=== PATIENT | female | born 1980 | race American Indian/Alaskan Native ===

== ENCOUNTER 2017-05-06 08:34 | Day surgery (SDC) | payer MEDICARE ==
--- NOTE | 2017-04-27 15:15 | Operative Report ---
Operative Report Operative Report: Procedure: 1. Right internal jugular tunneled dialysis catheter placement 2. Ultrasound guided puncture of the right internal jugular vein. Date: 03/20/2017 Physician: Mckayla Nunez MD Indication: 36 year old female with end stage renal disease, in need of dialysis. Technique: The patient was placed in the supine position and prepped and draped in the usual sterile fashion. A timeout was performed. Local anesthetic was administered. Under direct ultrasound guidance, the right internal jugular vein was accessed with a 21-gauge needle. This was exchanged over a manual wire for a 4 [place] exchanged dilator. Via the exchanged dilator, and 035 wire was advanced into the IVC. Attention was then turned to the right chest wall. An appropriate catheter exit site was chosen, and local anesthetic was again administered. A skin laura was made, and the catheter was tunneled under the skin from the exit site to the venotomy. After serial tissue dilation, the dialysis catheter was advanced through a peel- away sheath, until the tip was in the right atrium. Vacuum aspiration and flushing was performed. Each lumen was instilled with heparin. The catheter was secured to the skin with 2-0 Ethilon suture. The venotomy site was closed with Dermabond. Sterile dressings were placed, and the patient was transported from the procedure area in stable condition. Findings: 1. Ultrasound demonstrates a patent and compressible right internal jugular vein. 2. There is successful placement of a glide path 23 cm tunneled dialysis catheter via the right internal jugular vein. 3. Each lumen flushes and aspirates briskly. 4. Positioning of the catheter tip within the right atrium is confirmed by fluoroscopy. The catheter is ready for use.
[~2017-05-06 08:34] MED LIST: ANCEF/STERILE WATER 2 GM/20 ML 2 GM/20 ML SYRINGE IV NR; NACL 0.9% 1000 ML 1,000 ML IV SCH
[2017-05-06] MEDS ORDERED: NACL BACTERIOSTATIC INFILTRATI ONE ×2 (09:38→10:23)
[2017-05-06] MEDS ORDERED: XYLOCAINE MPF 2% ONE (09:48)
[2017-05-06] MEDS ORDERED: SUBLIMAZE ONE (09:48)
[2017-05-06] MEDS ORDERED: DIPRIVAN 10 MG/ML IV ONE ×2 (09:49→14:05)
--- NOTE | 2017-05-06 10:12 | Anesthesia Consultation ---
Anesthesia Consult and Med Hx Date of service: 05/06/17 - Airway Anesthetic Teeth Evaluation: Poor (poor dental hygiene, teeth intact ) ROM Head & Neck: Adequate Mental/Hyoid Distance: Adequate Mallampati Class: Class II Intubation Access Assessment: Possibly Difficult - Pulmonary Exam CTA: Yes - Cardiac Exam Cardiac Exam: RRR - Pre-Operative Health Status ASA Pre-Surgery Classification: ASA3 Proposed Anesthetic Plan: General - Pre-Anesthesia Comment Pre-Anesthesia Comments: last dialysis txt Thursday. sore throat for a week with last anesthetic - Cardiovascular System Hx Hypertension: Yes (FOR 4 YRS) - Central Nervous System Hx Psychiatric Problems: Yes (anxiety ) - Endocrine Hx End Stage Renal Disease: Yes - Hematic Hx Anemia: Yes
--- NOTE | 2017-05-06 10:13 | Anesthesia Day of Surgery ---
Anesthesia Day of Surgery - Day of Surgery Patient Examined: Yes Patient H&P Reviewed: Yes Patient is NPO: Yes
[2017-05-06] MEDS ORDERED: NEO SYNEPHRINE/NS Syringe(OR USE) IV ONE (10:30)
[2017-05-06] MEDS ORDERED: HEPARIN 10,000 UNITS/10 ML ONE ×2 (10:43→12:32)
[2017-05-06] MEDS ORDERED: PAPAVERINE ONE (10:43)
[2017-05-06] MEDS ORDERED: NACL 0.9% 500 ML 500 ML ONE (10:43)
[2017-05-06] MEDS ORDERED: PROTAMINE SULFATE ONE (10:43)
[2017-05-06] MEDS ORDERED: VERSED IV NR (10:43)
[2017-05-06] MEDS ORDERED: MARCAINE 0.5% 30 ML INFILTRATI ONE (10:43)
[2017-05-06] MEDS ORDERED: PEPCID IV NR (10:44)
[2017-05-06] MEDS ORDERED: QUELICIN ONE (11:44)
[2017-05-06] MEDS ORDERED: ZEMURON IV ONE (11:44)
[2017-05-06] MEDS ORDERED: ePHEDrine SULFATE ONE (11:48)
[2017-05-06] MEDS ORDERED: ROBINUL ONE (12:13)
[2017-05-06] MEDS ORDERED: ZOFRAN ONE ×2 (12:14→14:15)
[2017-05-06] MEDS ORDERED: NEOSTIGMINE ONE (12:14)
[2017-05-06] MEDS ORDERED: HEPARIN 10,000 UNITS/10 ML IV ONE (12:38)
[2017-05-06] MEDS ORDERED: MARCAINE 0.5% INFILTRATI ONE (12:39)
[2017-05-06] MEDS ORDERED: NACL 0.9% 500 ML IV ONE (12:39)
[2017-05-06] MEDS ORDERED: NACL 0.9% IR ONE (12:39)
[2017-05-06] MEDS ORDERED: DILAUDID ONE ×3 (13:37→14:30)
--- NOTE | 2017-05-06 13:37 | Operative Report ---
Operative Report Operative Report: Preoperative diagnoses end-stage renal disease. Postoperative diagnosis: The same Procedure: Left upper extremity brachial/axillary AV graft placement with bovine arterial graft. Surgeon: Frandy Salazar M.D. Asst.: Vangie Severino DO Asst.: None EBL 50. IV fluids 450. Findings: [Adequate size brachial artery. Adequate size axillary vein. Excellent thrill in the graft. Excellent hemostasis.] Disposition to recovery room Indication: patient with end-stage renal disease on dialysis we needs a permanent access. Procedure in detail: Patient was brought to the operating room laid on the table in supine position. After general endotracheal anesthesia was achieved patient was prepped and draped in usual sterile fashion. The incision was made longitudinally in the left arm above the elbow using #15 blade. Subcutaneous tissue was divided with Bovie electrocautery. The brachial artery was dissected and encircled was Vesseloops proximally and distally. Then attention was turned to the axilla. It was infiltrated with Marcaine. Incision was made using #15 blade. The subcutaneous tissue was divided by electrocautery. The axillary vein was dissected free. It vein was incircled with small vessel loops proximally and distally. Once the vein was ready the tunnel was created using the curved type inspector and the bovine arterial graft was tunneled underneath the skin. Patient received 4000 units of intravenous heparin. After 3 minutes the artery was clamped with vascular clamps proximally and distally. Arteriotomy was made using #11 blade and Zayas scissors. The proximal anastomosis was created using 6-0 Prolene running suture. Prior to completion of the anastomosis back bleeding maneuvers were performed and were adequate. Then anastomosis was completed. Clamps were released. There was good flow into the graft. An excellent hemostasis was achieved. The wound was packed with wet sponge. The axillary vein then was occluded using vascular clamps. The distal end of the bovine graft was spatulated. The distal anastomosis was created using 7-0 Prolene running suture. Once the clamps were released backbleeding was observed in the was good. The anastomosis was completed. The graft had an excellent thrill. Hemostasis was ascertained in both wounds. The wounds were closed in layers using 3-0 Vicryl and 4 Monocryl subcuticular closure. Patient tolerated procedure well. At the end of the case all attachment sponge and needle counts were correct.
--- NOTE | 2017-05-06 13:44 | Short Stay Summary ---
Short Stay Documentation - Allergies and Medications Current Medications: Allergies No Known Allergies Allergy (Unverified 03/19/17 13:00) Home Medications Medication Instructions Recorded Confirmed Last Taken Type ALPRAZolam [Xanax TAB] 0.25 mg PO BID PRN 04/30/17 05/06/17 05/02/17 History Cinacalcet [Sensipar] 30 mg PO QDAY 04/30/17 05/06/17 05/05/17 History Sertraline [Zoloft] 25 mg PO QDAY PRN 04/30/17 05/06/17 05/03/17 History cloNIDine [Catapres] 0.2 mg PO QDAY 04/30/17 05/06/17 05/05/17 History Active Medications Famotidine (Pepcid) 20 mg IV PREOP NR Stop: 05/06/17 23:59 Last Admin: 05/06/17 11:02 Dose: 20 mg Cefazolin Sodium (Ancef/Sterile Water 2 Gm/20 Ml) 2 gm in 20 mls @ 80 mls/hr IV PREOP NR PRN Reason: Protocol Stop: 05/06/17 23:59 Sodium Chloride (Nacl 0.9% 1000 Ml) 1,000 mls @ 42 mls/hr IV DIRECT [facility] Midazolam HCl (Versed) 2 mg IV PREOP NR Stop: 05/06/17 23:59 Last Admin: 05/06/17 11:05 Dose: 2 mg - Brief post op/procedure progress note Procedure: Preoperative diagnoses end-stage renal disease. Postoperative diagnosis: The same Procedure: Left upper extremity brachial/axillary AV graft placement with bovine arterial graft. Surgeon: Frandy Salazar M.D. Asst.: Vangie Severino DO Asst.: None EBL 50. IV fluids 450. Findings: [Adequate size brachial artery. Adequate size axillary vein. Excellent thrill in the graft. Excellent hemostasis.] Disposition to recovery room - Disposition Condition at discharge: Good Disposition: DC-01 TO HOME OR SELFCARE Short Stay Discharge Plan Activity: advance as tolerated (no heavy lifting was left arm for 6 weeks) Weight Bearing Status: Full Weight Bearing Diet: renal Wound: open to air Follow up with: PRIMARY MD EUGENIO [Primary Care Provider] - 7 Days FRANDY SALAZAR MD [Staff Physician] - 14 Days
[2017-05-06] MEDS ORDERED: ZOFRAN IV PRN (14:10)
[2017-05-06] MEDS ORDERED: DILAUDID IV PRN (14:10)
--- NOTE | 2017-05-06 15:43 | Post Anesthesia Evaluation ---
- Post Anesthesia Evaluation Patient Participated: Yes Airway Patent: Yes Stable Respiratory Function: Yes Nausea/Vomiting: No Temp > 96.8F: Yes Pain Manageable: Yes Adequeate Hydration: Yes Anesthesia Complications: No
[2017-05-06] MEDS ORDERED: HEPARIN IV SCH (16:45)
[2017-05-06] MEDS ORDERED: ZOFRAN IV SCH (17:30)
[2017-05-06] MEDS ORDERED: TORADOL IV SCH (19:00)
[2017-05-06 19:13] VITALS: BP 120/77
== END 2017-05-06 18:58 | disposition home or self-care (01) ==
LOC: OR 08:34
PROVIDERS: ATTEND Surgery Vascular Surgery
DX: I12.0 Hypertensive chronic kidney disease with stage 5 chronic kidney disease or end stage renal disease (principal); N18.6 End stage renal disease; F41.9 Anxiety disorder, unspecified; D64.9 Anemia, unspecified; Z99.2 Dependence on renal dialysis; Z79.899 Other long term (current) drug therapy; Z98.890 Other specified postprocedural states
CPT/HCPCS: 36415; 36830; 84132; 84703; C1768; J0330; J0690; J1170; J1644; J1885; J2250; J2370; J2405; J2704; J2710; J3010; J7030; J7040; J2440; J2720

== ENCOUNTER 2018-04-22 07:20 | Day surgery (SDC) | payer MEDICARE ==
[~2018-04-22 07:20] MED LIST changes: +NACL BACTERIOSTATIC INFILTRATI ONE
[2018-04-22] MEDS ORDERED: HEPARIN 10,000 UNITS/10 ML ONE (07:36)
[2018-04-22] MEDS ORDERED: SODIUM BICARBONATE ONE (07:39)
[2018-04-22] MEDS ORDERED: MARCAINE 0.5% 30 ML INFILTRATI ONE (07:39)
[2018-04-22] MEDS ORDERED: NACL 0.9% 500 ML 500 ML ONE (07:39)
[2018-04-22] MEDS ORDERED: VALIUM ONE (08:01)
[2018-04-22] MEDS ORDERED: VERSED ONE ×2 (08:05→08:30)
[2018-04-22] MEDS ORDERED: ZOFRAN ONE ×3 (08:06→16:39)
[2018-04-22] MEDS ORDERED: PEPCID IV ONE (08:06)
[2018-04-22 08:19] LABS: Basophils # (Auto) 0.1 K/mm3 (0.0-0.1); Basophils % (Auto) 0.9 % (0.0-1.8); Eosinophils # (Auto) 0.2 K/mm3 (0.0-0.4); Eosinophils % (Auto) 3.1 % (0.0-4.3); Hematocrit 31.2 % (30.3-42.9); Hemoglobin 10.1 gm/dl (10.1-14.3); Lymphocytes # (Auto) 1.6 K/mm3 (1.2-5.4); Lymphocytes % (Auto) 26.6 % (13.4-35.0); Mean Corpuscular HGB Conc 33 % (30-34); Mean Corpuscular Hemoglobin 32 pg (28-32); Mean Corpuscular Volume 98 fl (79-97); Monocytes # (Auto) 0.4 K/mm3 (0.0-0.8); Monocytes % (Auto) 6.7 % (0.0-7.3); Platelet Count 210 K/mm3 (140-440); Red Blood Count 3.19 M/mm3 (3.65-5.03); Red Cell Distribution Width 16.6 % (13.2-15.2)
[2018-04-22] MEDS ORDERED: REGLAN ONE (08:30)
[2018-04-22] MEDS ORDERED: DIPRIVAN 10 MG/ML IV ONE (08:30)
[2018-04-22] MEDS ORDERED: SUBLIMAZE ONE ×3 (08:30→10:19)
[2018-04-22] MEDS ORDERED: XYLOCAINE MPF 2% ONE (08:30)
[2018-04-22 08:31] LABS: Calcium 7.8 mg/dL (8.4-10.2)
[2018-04-22] MEDS ORDERED: ZEMURON IV ONE (08:34)
[2018-04-22] MEDS ORDERED: NEO SYNEPHRINE/NS Syringe(OR USE) IV ONE (08:52)
[2018-04-22] MEDS ORDERED: ePHEDrine 50 MG/5 ML-0.9% NACL IV ONE (08:56)
[2018-04-22] MEDS ORDERED: ZOFRAN IV PRN (09:03)
[2018-04-22] MEDS ORDERED: DILAUDID IV PRN (09:03)
--- NOTE | 2018-04-22 09:07 | Anesthesia Day of Surgery ---
Anesthesia Day of Surgery - Day of Surgery Patient Examined: Yes Patient H&P Reviewed: Yes Patient is NPO: Yes
--- NOTE | 2018-04-22 09:09 | Anesthesia Consultation ---
Anesthesia Consult and Med Hx Date of service: 04/22/18 - Airway Anesthetic Teeth Evaluation: Poor, Chipped ROM Head & Neck: Adequate Mental/Hyoid Distance: Adequate Mallampati Class: Class III Intubation Access Assessment: Possibly Difficult - Pulmonary Exam CTA: Yes - Cardiac Exam Cardiac Exam: RRR - Pre-Operative Health Status ASA Pre-Surgery Classification: ASA4 Proposed Anesthetic Plan: General (extreme anxiety given valium 5mg po and versed 2mg iv in preop, another versed 2mg iv in OR. Plan to intubate ) - Pulmonary Hx Smoking: No Hx Asthma: No COPD: No Hx Pneumonia: No Hx Sleep Apnea: No (LENNY PRE SCREEN HIGH RISK.) - Cardiovascular System Hx Hypertension: Yes (X 5 YRS- ONLY TAKES MEDS PRN) Hx Heart Attack/AMI: No - Central Nervous System Hx Psychiatric Problems: Yes (anxiety ) - Endocrine Hx End Stage Renal Disease: Yes - Hematic Hx Anemia: Yes - Other Systems Hx Cancer: No
[2018-04-22] MEDS ORDERED: HEPARIN 10,000 UNITS/10 ML 2,000 UNIT in NACL 0.9% 500 ML 500 ML IR ONE (09:24)
[2018-04-22] MEDS ORDERED: NACL 0.9% IR ONE (09:25)
[2018-04-22] MEDS ORDERED: MARCAINE 0.5% INFILTRATI ONE (09:26)
[2018-04-22] MEDS ORDERED: NACL 0.9% 1000 ML 1,000 ML IV SCH (10:00)
[2018-04-22] MEDS ORDERED: PAPAVERINE ONE (10:41)
[2018-04-22] MEDS ORDERED: PAPAVERINE IV ONE (10:46)
[2018-04-22] MEDS ORDERED: BLOXIVERZ ONE (11:50)
[2018-04-22] MEDS ORDERED: ROBINUL ONE (11:50)
--- NOTE | 2018-04-22 12:29 | Operative Report ---
Operative Report Operative Report: Date of procedure: 04/22/2018 Pre-operative diagnosis: End-stage renal disease, mechanical complication of AV access, and obesity Post-operative diagnosis: Same Procedure name(s): Creation of right forearm transposed basilic vein to proximal radial artery AV fistula Surgeon: Janes Presley MD Capacity Planning Engineer: None Anesthesia: Gen. endotracheal EBL: Minimal Specimen(s): None Complications: None Findings: Forearm basilic vein considered adequate for AV fistula creation. Good flow in the radial artery although slightly small considered adequate for fistula creation. Excellent thrill and bruit in the fistula postanastomosis. Palpable radial pulse. Procedure: Patient in the supine position after adequate levels of IV sedation was obtained and general endotracheal anesthesia the right arm was extended and the entire extremity was then prepped and draped using standard sterile technique. The previously marked the course of the basilic vein using the ultrasound and then I made a longitudinal incision through anesthetized skin just below the antecubital fossa and carried down through the subcutaneous tissue. The fascia was divided and the radial artery, ulnar artery, and brachial artery were immediately identified and mobilized and encircled using vessel loops. I felt that the radial artery was of adequate size and the mobilized several centimeters with the intention of using the proximal radial artery as our donor arterial anastomosis. Attention was then turned over the medial aspect of the distal upper arm where the basilic vein was located. The skin overlying the area and below the elbow was then anesthetized and a longitudinal incision was then made and carried down to subcutaneous tissue. The basilic vein was identified along with the civil technician median cutaneous nerve. The nerve was preserved and swept medially. The vein was then mobilized distally into the upper forearm. Appropriate length was mobilized such that it would swing over to the brachial artery. I then divided the vein distally and hydrodilated the remaining vein. It proved to be quite adequate in size once this maneuver was completed. I then created a subcutaneous tunnel and marked the vein for rotation. It was then brought into the antecubital incision in a nonrotational fashion through the tunnel. The proximal radial artery was then occluded and a generous longitudinal arteriotomy was then made. The vein was then trimmed to an appropriate length and configuration and an end to side anastomosis was then created using 6-0 Prolene suture and running technique. Prior to completion of the suture line antegrade and retrograde flushing was performed. Suture line was then completed and flow was reestablished initially retrograde into the fistula then antegrade. Ultimately flow was released to the hand. The fistula developed an excellent thrill and bruit. Hemostasis was excellent. I then blocked the incisions with Marcaine 0.5% plain and then each wound was closed using 3-0 Vicryl subcutaneous for Monocryl subcuticular. The skin was reapproximated using octylseal. Patient was then returned to the supine position. Palpable radial pulse was noted. She was then returned to the recovery room in stable condition having tolerated the procedure well. Sponge and needle counts were correct. Excellent thrill and bruit was noted in the fistula.
--- NOTE | 2018-04-22 12:36 | Short Stay Summary ---
Short Stay Documentation Date of service: 04/22/18 Narrative H&P: Patient admitted to the operative suite for elective outpatient creation of new hemodialysis access in her right arm - History H&P: obtained from office - Allergies and Medications Current Medications: Allergies No Known Allergies Allergy (Verified 04/14/18 16:43) Home Medications Medication Instructions Recorded Confirmed Last Taken Type ALPRAZolam [Xanax TAB] 0.25 mg PO BID PRN 04/30/17 04/14/18 05/02/17 History Sertraline [Zoloft] 25 mg PO QDAY PRN 04/30/17 04/14/18 05/03/17 History cloNIDine [Catapres] 0.2 mg PO PRN PRN 04/30/17 04/14/18 05/05/17 History Active Medications Hydromorphone HCl (Dilaudid) 0.5 mg IV Q10MIN PRN PRN Reason: Pain , Severe (7-10) Stop: 04/22/18 13:00 Cefazolin Sodium (Ancef/Sterile Water 2 Gm/20 Ml) 2 gm in 20 mls @ 80 mls/hr IV PREOP NR; Protocol Stop: 04/22/18 21:00 Sodium Chloride (Nacl 0.9% 1000 Ml) 1,000 mls @ 100 mls/hr IV DIRECT [facility]ST[place]NA - Brief post op/procedure progress note Date of procedure: 04/22/18 Pre-op diagnosis: stage renal disease, mechanical complication of AV access Post-op diagnosis: same Procedure: Patient in the supine position after adequate levels of IV sedation was obtained and general endotracheal anesthesia the right arm was extended and the entire extremity was then prepped and draped using standard sterile technique. The previously marked the course of the basilic vein using the ultrasound and then I made a longitudinal incision through anesthetized skin just below the antecubital fossa and carried down through the subcutaneous tissue. The fascia was divided and the radial artery, ulnar artery, and brachial artery were immediately identified and mobilized and encircled using vessel loops. I felt that the radial artery was of adequate size and the mobilized several centimeters with the intention of using the proximal radial artery as our donor arterial anastomosis. Attention was then turned over the medial aspect of the distal upper arm where the basilic vein was located. The skin overlying the area and below the elbow was then anesthetized and a longitudinal incision was then made and carried down to subcutaneous tissue. The basilic vein was identified along with the see supervisor median cutaneous nerve. The nerve was preserved and swept medially. The vein was then mobilized distally into the upper forearm. Appropriate length was mobilized such that it would swing over to the brachial artery. I then divided the vein distally and hydrodilated the remaining vein. It proved to be quite adequate in size once this maneuver was completed. I then created a subcutaneous tunnel and marked the vein for rotation. It was then brought into the antecubital incision in a nonrotational fashion through the tunnel. The proximal radial artery was then occluded and a generous longitudinal arteriotomy was then made. The vein was then trimmed to an appropriate length and configuration and an end to side anastomosis was then created using 6-0 Prolene suture and running technique. Prior to completion of the suture line antegrade and retrograde flushing was performed. Suture line was then completed and flow was reestablished initially retrograde into the fistula then antegrade. Ultimately flow was released to the hand. The fistula developed an excellent thrill and bruit. Hemostasis was excellent. I then blocked the incisions with Marcaine 0.5% plain and then each wound was closed using 3-0 Vicryl subcutaneous for Monocryl subcuticular. The skin was reapproximated using octylseal. Patient was then returned to the supine position. Palpable radial pulse was noted. She was then returned to the recovery room in stable condition having tolerated the procedure well. Sponge and needle counts were correct. Excellent thrill and bruit was noted in the fistula. Anesthesia: GETA - Disposition Condition at discharge: Stable Disposition: DC- TO HOME OR SELFCARE - Discharge Diagnoses (1) End stage renal disease on dialysis Status: Chronic (2) Malfunction of arteriovenous shunt Status: Chronic Qualifiers: Encounter type: subsequent encounter Qualified Code(s): T82.591D - Other mechanical complication of surgically created arteriovenous shunt, subsequent encounter Short Stay Discharge Plan Activity: advance as tolerated Weight Bearing Status: Full Weight Bearing Diet: renal Wound: keep clean and dry Special Instructions: no heavy lifting Follow up with: YI BECKER MD [Primary Care Provider] - 7 Days MONICO GRIFFIN MD [Staff Physician] - 7 Days HUMA WITT MD [Staff Physician] - 14 Days Prescriptions: HYDROcodone/APAP 5-325 [Stanton 5/325] 1 each PO Q4HR PRN #20 tablet PRN Reason: Pain
[2018-04-22] MEDS ORDERED: PHENERGAN PR PRN (13:33)
[2018-04-22] MEDS ORDERED: DILAUDID IM PRN (13:37)
[2018-04-22 16:19] VITALS: BP 103/68
== END 2018-04-22 17:21 | disposition home or self-care (01) ==
LOC: OR 07:20
PROVIDERS: ATTEND Surgery Vascular Surgery
DX: T82.590A Other mechanical complication of surgically created arteriovenous fistula, initial encounter (principal); E66.01 Morbid (severe) obesity due to excess calories; I12.0 Hypertensive chronic kidney disease with stage 5 chronic kidney disease or end stage renal disease; N18.6 End stage renal disease; F41.9 Anxiety disorder, unspecified; Y83.2 Surgical operation with anastomosis, bypass or graft as the cause of abnormal reaction of the patient, or of later complication, without mention of misadventure at the time of the procedure; Z98.890 Other specified postprocedural states; Z68.41 Body mass index [BMI] 40.0-44.9, adult
CPT/HCPCS: 36415; 36819; 80048; 84703; 85025; J0690; J1170; J1644; J2250; J2370; J2405; J2440; J2704; J2710; J2765; J3010; J7030; J7040

== ENCOUNTER 2018-07-01 06:40 | Day surgery (SDC) | payer MEDICARE ==
[~2018-07-01 06:40] MED LIST changes: +HEPARIN 10,000 UNITS/10 ML IV ONE; +MARCAINE 0.5% INFILTRATI ONE; +MARCAINE-EPI 0.5%-1:200,000 INFILTRATI ONE; +NACL 0.9% 500 ML IV ONE; -NACL BACTERIOSTATIC INFILTRATI ONE
[2018-07-01] MEDS ORDERED: DIPRIVAN 10 MG/ML IV ONE (06:55)
[2018-07-01] MEDS ORDERED: MARCAINE 0.5% INFILTRATI ONE (06:55)
[2018-07-01] MEDS ORDERED: DILAUDID ONE ×2 (06:55→09:30)
[2018-07-01] MEDS ORDERED: XYLOCAINE MPF 2% ONE (06:55)
[2018-07-01] MEDS ORDERED: HEPARIN 10,000 UNITS/10 ML ONE (06:56)
[2018-07-01] MEDS ORDERED: MARCAINE-EPI 0.5%-1:200,000 INFILTRATI ONE (06:56)
[2018-07-01] MEDS ORDERED: NACL 0.9% 500 ML 500 ML ONE (06:56)
[2018-07-01] MEDS ORDERED: SUBLIMAZE ONE (07:57)
--- NOTE | 2018-07-01 07:58 | Anesthesia Day of Surgery ---
Anesthesia Day of Surgery - Day of Surgery Patient Examined: Yes Patient H&P Reviewed: Yes Patient is NPO: Yes
--- NOTE | 2018-07-01 07:58 | Anesthesia Consultation ---
Anesthesia Consult and Med Hx Date of service: 07/01/18 - Airway Anesthetic Teeth Evaluation: Poor, Chipped ROM Head & Neck: Adequate Mental/Hyoid Distance: Adequate Mallampati Class: Class IV Intubation Access Assessment: Possibly Difficult (Previous easy intubation with MAC 3 per 04/2018 anesthesia record) - Pulmonary Exam CTA: Yes - Cardiac Exam Cardiac Exam: RRR - Pre-Operative Health Status ASA Pre-Surgery Classification: ASA4 Proposed Anesthetic Plan: General - Pulmonary Hx Smoking: No Hx Respiratory Symptoms: No SOB: No Home Oxygen Therapy: No - Cardiovascular System Hx Hypertension: Yes (meds prn) Hx Heart Attack/AMI: No - Central Nervous System Hx Seizures: No Hx Psychiatric Problems: Yes (anxiety/depression) - Gastrointestinal Hx Gastroesophageal Reflux Disease: No - Endocrine Hx End Stage Renal Disease: Yes (Last HD 06/30; BMP pending) Hx Liver Disease: No Hx Insulin Dependent Diabetes: No Hx Thyroid Disease: No - Hematic Hx Anemia: Yes (CBC pending) - Other Systems Hx Obesity: Yes
[2018-07-01] MEDS ORDERED: NACL 0.9% 1000 ML 1,000 ML IV SCH ×2 (08:00)
[2018-07-01] MEDS ORDERED: PEPCID IV NR (08:00)
[2018-07-01] MEDS ORDERED: VERSED IV NR (08:00)
[2018-07-01] MEDS ORDERED: DILAUDID IV PRN (08:00)
[2018-07-01] MEDS ORDERED: ZOFRAN IV PRN (08:00)
[2018-07-01 08:37] LABS: Basophils # (Auto) 0.1 K/mm3 (0.0-0.1); Basophils % (Auto) 1.3 % (0.0-1.8); Eosinophils # (Auto) 0.2 K/mm3 (0.0-0.4); Eosinophils % (Auto) 2.9 % (0.0-4.3); Hematocrit 28.1 % (30.3-42.9); Hemoglobin 9.5 gm/dl (10.1-14.3); Lymphocytes # (Auto) 1.4 K/mm3 (1.2-5.4); Mean Corpuscular HGB Conc 34 % (30-34); Mean Corpuscular Hemoglobin 32 pg (28-32); Mean Corpuscular Volume 94 fl (79-97); Monocytes # (Auto) 0.4 K/mm3 (0.0-0.8); Monocytes % (Auto) 7.1 % (0.0-7.3); Platelet Count 190 K/mm3 (140-440); Red Cell Distribution Width 17.2 % (13.2-15.2)
[2018-07-01 08:53] LABS: BUN/Creatinine Ratio TNR; Blood Urea Nitrogen TNR mg/dL (7-17); Calcium TNR mg/dL (8.4-10.2)
[2018-07-01 08:54] LABS: Hemolysis Index TNR
[2018-07-01] MEDS ORDERED: ZOFRAN ONE (08:57)
[2018-07-01] MEDS ORDERED: DECADRON ONE (08:57)
--- NOTE | 2018-07-01 12:25 | Operative Report ---
Operative Report Operative Report: Date of procedure: 07/01/2018 Pre-operative diagnosis: Function of AV fistula, right arm, end-stage renal disease on hemodialysis, morbid obesity Post-operative diagnosis: Same Procedure name(s): Revision of hemodialysis fistula right arm using elevation technique Surgeon: Janes Presley MD Electronic Calibration Technician: None Anesthesia: Gen. using LMA EBL: Minimal Specimen(s): None Complications: None Findings: Good caliber AV fistula. Good thrill and bruit and fistula palpable radial pulse at procedure completion Procedure:Patient in the supine position with the right arm extended the entire extremity is prepped and draped using sterile technique. The AV fistula was easily palpable at the antecubital fossa. I made a longitudinal incision overlying the basilic vein just above the antecubital fossa and extended sequentially to the axilla. The incision was deepened until the basilic vein was identified. Care was taken to identify and preserve the muscular cutaneous nerve throughout its entire length. Once the vein was mobilized to the level of the axilla it was encircled using vessel loops it was retracted upward and freed from its vascular base. Side branches were ligated using 3-0 silk ties. The extension was then extended along the previously mobilized portion of the vein all the way too close to the arterial venous anastomosis in order to gain extra length because of the large size of her arm. A portion of the basilic vein was mobilized in its entirety which freed up enough extra vein to make a as configuration. The vein was then divided after vascular control was obtained using the beveled technique. I then removed the upper portion of the vessel from underneath the nerves flushed and dilated it with saline. A curved Leslie-Wick tunneling device was then used to create the subdermal tunnel. Marcaine 0.5% plain was used to anesthetize the tunnel. The fistula was then attached to the tunneler and pulled back into the antecubital fossa portion of the incision in a non-rotational fashion. The vessel was then reanastomosed end to end using 6-0 Prolene suture. Prior to completion of the suture line antegrade and retrograde flushing was performed. The suture line was then completed and flow was released back to the fistula. The fistula developed an excellent thrill and bruit. Hemostasis was excellent. The incision was then blocked with Marcaine 0.5% with epinephrine. The incision was then closed using 3-0 Vicryl subcutaneous 4-0 Monocryl subcuticular. The skin was then sealed using skinafix The patient was then extubated returned to the recovery room in stable condition having tolerated the procedure well. Sponge and needle counts were correct.]
--- NOTE | 2018-07-01 12:30 | Short Stay Summary ---
Short Stay Documentation Date of service: 07/01/18 Narrative H&P: Patient admitted to the operative suite for elective outpatient revision (via elevation technique) functioning brachiobasilic fistula in her right arm - History H&P: obtained from office - Allergies and Medications Current Medications: Allergies diazepam [From Valium] Adverse Reaction (Verified 06/29/18 10:31) Diarrhea Home Medications Medication Instructions Recorded Confirmed Last Taken Type ALPRAZolam [Xanax TAB] 0.25 mg PO BID PRN 04/30/17 06/29/18 07/01/18 History Sertraline [Zoloft] 25 mg PO QDAY PRN 04/30/17 06/29/18 07/01/18 History cloNIDine [Catapres] 0.2 mg PO PRN PRN 04/30/17 06/29/18 07/01/18 History Active Medications Famotidine (Pepcid) 20 mg IV PREOP NR Stop: 07/01/18 21:00 Hydromorphone HCl (Dilaudid) 0.5 mg IV Q10MIN PRN PRN Reason: Pain , Severe (7-10) Stop: 07/01/18 15:00 Cefazolin Sodium (Ancef/Sterile Water 2 Gm/20 Ml) 2 gm in 20 mls @ 80 mls/hr IV PREOP NR; Protocol Stop: 07/01/18 23:59 Sodium Chloride (Nacl 0.9% 1000 Ml) 1,000 mls @ 42 mls/hr IV DIRECT [place] Sodium Chloride (Nacl 0.9% 1000 Ml) 1,000 mls @ 100 mls/hr IV DIRECT [place] Midazolam HCl (Versed) 2 mg IV PREOP NR Stop: 07/01/18 23:59 Ondansetron HCl (Zofran) 4 mg IV ONCE PRN PRN Reason: Nausea And Vomiting Stop: 07/01/18 17:00 - Brief post op/procedure progress note Procedure: Date of procedure: 07/01/2018 Pre-operative diagnosis: Function of AV fistula, right arm, end-stage renal disease on hemodialysis, morbid obesity Post-operative diagnosis: Same Procedure name(s): Revision of hemodialysis fistula right arm using elevation technique Surgeon: Janes Presley MD Genomics Scientist: None Anesthesia: Gen. using LMA EBL: Minimal Specimen(s): None Complications: None Findings: Good caliber AV fistula. Good thrill and bruit and fistula palpable radial pulse at procedure completion Procedure:Patient in the supine position with the right arm extended the entire extremity is prepped and draped using sterile technique. The AV fistula was easily palpable at the antecubital fossa. I made a longitudinal incision overlying the basilic vein just above the antecubital fossa and extended sequentially to the axilla. The incision was deepened until the basilic vein was identified. Care was taken to identify and preserve the muscular cutaneous nerve throughout its entire length. Once the vein was mobilized to the level of the axilla it was encircled using vessel loops it was retracted upward and freed from its vascular base. Side branches were ligated using 3-0 silk ties. The extension was then extended along the previously mobilized portion of the vein all the way too close to the arterial venous anastomosis in order to gain extra length because of the large size of her arm. A portion of the basilic vein was mobilized in its entirety which freed up enough extra vein to make a as configuration. The vein was then divided after vascular control was obtained using the beveled technique. I then removed the upper portion of the vessel from underneath the nerves flushed and dilated it with saline. A curved Leslie-Wick tunneling device was then used to create the subdermal tunnel. Marcaine 0.5% plain was used to anesthetize the tunnel. The fistula was then attached to the tunneler and pulled back into the antecubital fossa portion of the incision in a non-rotational fashion. The vessel was then reanastomosed end to end using 6-0 Prolene suture. Prior to completion of the suture line antegrade and retrograde flushing was performed. The suture line was then completed and flow was released back to the fistula. The fistula developed an excellent thrill and bruit. Hemostasis was excellent. The incision was then blocked with Marcaine 0.5% with epinephrine. The incision was then closed using 3-0 Vicryl subcutaneous 4-0 Monocryl subcuticular. The skin was then sealed using skinafix The patient was then extubated returned to the recovery room in stable condition having tolerated the procedure well. Sponge and needle counts were correct. - Hospital course Hospital course: Benign - Disposition Condition at discharge: Stable Disposition: - TO HOME OR SELFCARE - Discharge Diagnoses (1) End stage renal disease on dialysis Status: Chronic (2) Malfunction of arteriovenous shunt Status: Chronic Qualifiers: Encounter type: subsequent encounter Short Stay Discharge Plan Activity: advance as tolerated Weight Bearing Status: Full Weight Bearing Diet: renal Wound: keep clean and dry Special Instructions: no heavy lifting, other (avoid prolonged flexion of right elbow) Follow up with: PRIMARY CARE, [Primary Care Provider] - 7 Days JANES PRESLEY MD [Staff Physician] - 14 Days Prescriptions: HYDROcodone/APAP 5-325 [[place] 5/325] 1 each PO Q4HR PRN #25 tablet PRN Reason: Pain, Moderate (4-6)
[2018-07-01 13:36] VITALS: BP 142/55
== END 2018-07-01 06:41 | disposition home or self-care (01) ==
LOC: OR 06:40
PROVIDERS: ATTEND Surgery Vascular Surgery
DX: T82.590A Other mechanical complication of surgically created arteriovenous fistula, initial encounter (principal); I12.0 Hypertensive chronic kidney disease with stage 5 chronic kidney disease or end stage renal disease; N18.6 End stage renal disease; F32.9 Major depressive disorder, single episode, unspecified; F41.9 Anxiety disorder, unspecified; E66.9 Obesity, unspecified; Z68.41 Body mass index [BMI] 40.0-44.9, adult; Z86.2 Personal history of diseases of the blood and blood-forming organs and certain disorders involving the immune mechanism; Z79.899 Other long term (current) drug therapy; Z88.8 Allergy status to other drugs, medicaments and biological substances; Z99.2 Dependence on renal dialysis; Z98.890 Other specified postprocedural states; Y84.8 Other medical procedures as the cause of abnormal reaction of the patient, or of later complication, without mention of misadventure at the time of the procedure; Y92.89 Other specified places as the place of occurrence of the external cause
CPT/HCPCS: 36415; 36832; 80048; 84703; 85025; J0690; J1100; J1170; J1644; J2250; J2405; J2704; J3010; J7030; J7040